=== PATIENT | male | born 1985 | race Caucasian/White ===

== ENCOUNTER 2020-12-19 14:43 | Emergency (ER) | payer OTHER ==
[~2020-12-19 14:43] MED LIST: CYCLOBENZAPRINE10 MG PO; IBUPROFEN800 MG PO; NORCO 5-325 TA1 EACH PO; [UNRECOGNIZED DRUG - REMARK]
[2020-12-19] MEDS ORDERED: CYCLOBENZAPRINE10 MG PO (18:10)
== END 2020-12-19 18:52 | disposition home or self-care (01) ==
LOC: FER 14:43
DX: S13.4XXA Sprain of ligaments of cervical spine, initial encounter (principal); S23.3XXA Sprain of ligaments of thoracic spine, initial encounter; S00.01XA Abrasion of scalp, initial encounter; I10 Essential (primary) hypertension; Z23 Encounter for immunization; V47.5XXA Car driver injured in collision with fixed or stationary object in traffic accident, initial encounter; Y92.410 Unspecified street and highway as the place of occurrence of the external cause
CPT/HCPCS: 70450; 72072; 72125; 90471; 90715